=== PATIENT | male | born 1950 | race African-American/Black ===

== ENCOUNTER 2016-07-30 01:23 | Inpatient (IN) | payer OTHER, MEDICARE ==
[2016-07-30] VITALS (9 sets, daily range): BP systolic 93–146; BP diastolic 45–63
[~2016-07-30] VITALS: Ht 193 cm; Wt 75.4 kg
[~2016-07-30 01:23] MED LIST: AMLODIPINE10 MG PO; AZITHROMYCIN250 MG PO; CALCIUM PO; COUMADIN4 MG PO; COUMADIN6 MG PO; Compazine10 MG PO; ELITE MAGNESIUM1 TAB PO; GLEEVEC400 MG PO; KEFLEX 500MG.500 MG PO; MAXZIDE 50 MG-71 TAB OR; OMEPRAZOLE DR20 MG PO; XANAX2 MG PO
--- NOTE | 2016-07-30 01:35 | Emergency Room Report ---
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 EMS REPORTS SATS IN THE 70'S. 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 REPRESENTATIVE Sepsis Risk Assessment: Temp: B/P: 146/63 MAP: 90 Pulse: 114 Resp: 16 Recent fever? N Clinical Suspician of Infection? N Mental Status: 1 - Regular (Normal Baseline) Sepsis Risk:Low Sepsis Risk Have you (or family members/close friends) recently traveled outside the [place]? N If Yes, where/when: Have you had exposure to infectious disease within the past month? N TB? Other? Specify: Source patient, RN notes reviewed, family, RN/MD Exam Limitations no limitations Comment This is a 66-year-old male patient brought in by EMS from local [facility] with shortness of breath. Paramedics advised that upon their arrival to the [facility] the patient's pulse ox was 70% on 3 L nasal cannula (on which he is on, chronically, at the [place]). [facility] staff give patient a dose of oral Lasix prior to departure from the [facility]. ALLERGIES Coded Allergies: lisinopril (Severe, CAUSES FACE TO SWELL 12/14/15) amoxicillin (Mild, I-ITCHING 12/14/15) naproxen (Mild, INCREASES BP 12/14/15) topiramate (From TOPAMAX) (12/24/15) Uncoded Allergies: CHOLESTEROL MEDS (Mild, CRAMPING 06/28/12) Home Medications Reported Medications Amlodipine Besylate (Amlodipine) 10 MG PO DAILY Imatinib Mesylate (Gleevec) 400 MG PO DAILY Warfarin Sodium (Coumadin) 6 MG PO 4X WEEK Warfarin Sodium (Coumadin) 4 MG PO 3X WEEK Alprazolam (Xanax) 2 MG PO PRN PRN SLEEP/ANXIETY History Medical History General CAD? No Angina: Yes [place]: No Hypertension? Yes Hyperlipidemia? Yes CHF? No DVT? Yes PE? No COPD? Yes Asthma? No Anemia? No GERD? No Gastric ulcers? No GI Bleed? No Hernia? No Thyroid Problems? No Hypothyroidism? No CVA? No Seizures? No Diabetes? No Renal Insuffiency? No End Stage Renal Disease? No UTI? No Stones? No BPH? No GB Disease: No Nephritic Syndrome? No Asplenia? No Hepatitis? No Sickle Cell Disease? No Arthritis? No Migraines? No Cataracts? No Glaucoma? No MRSA? No HIV? No TB? No Anxiety? No Depression? 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 No Immunization Hx DT/Tetanus 1-4 YRS Surgical Hx Previous Surgery?Y KENDRICK KNEES Social History Smoking Hx Smoker: Former Smoker Tobacco: No Alcohol Alcohol: No Review of Systems All Other Systems Reviewed and Negative Respiratory shortness of breath Physical Exam Vital Signs Vital Signs Date Time Temp Pulse Resp B/P Pulse O2 O2 Flow FiO2 Ox Delivery Rate 07/30 0146 96 07/30 0127 114 16 146/63 96 15 General Appearance normal appearance, WD/WN, mild distress Neck normal inspection, non-tender, supple, full range of motion Respiratory Status Yes: trachea midline, chest symmetrical, non tender chest. No: respiratory distress. Lung Sounds bilateral: normal breath sounds, lungs clear. Cardiovascular tachycardia, irregularly irregular, + 2 peripheral edema Gastrointestinal normal bowel sounds, normal exam, non tender, soft, no organomegaly Extremities non-tender, normal range of motion, normal inspection Neurologic alert, assembler arranger II-XII nml as tested, normal exam, oriented x 3 Mental status normal mood/affect Skin intact, normal color, warm/dry Medical Decision Making LABS/Meds/Orders Pt receiving controlled substance in ED? No Comment 01:45am -nurse unable to obtain blood, will call cross tie turner 02:10am-call initiated with [facility] in [place], regarding patient's need for TRANSFER *additionbal dose of iv lasix 40mg ivp x1 given. RN stated that the patient had alreayd an output of 1,000ml of urine following the oral Lasix received at the [facility]. 02:25am-Gallo with [facility] called back advising that they do not have any intensive care unit beds. Plan is to wait for the blood work, and admit the patient to this facility, to the environmental science program director physician. 02:55am-case d/w dr. Gates, covering for dr. aBlderas, thighs of patient's presentation, physical examination, findings, ER course, vital signs. Dr. Gates agreeable to accept patient on behalf of Dr. Balderas and place him inpatient/ telemetry. By this time the patient has voided over 1600 mL's of urine after receiving Lasix Results/Orders Laboratory Tests 07/30/16209: Sodium 136, Potassium 4.2, Chloride 101, Carbon Dioxide 29, BUN 20 H, Creatinine 1.3, Estimated Creat Clear 65, Estimated GFR (MDRD) 55, Glucose 89, Calcium 9.1, Total Bilirubin 0.5, AST 56 H, ALT 44, Alkaline Phosphatase 95, Creatine Kinase 100, CK and CKMB Interp 1.0, Troponin I < 0.02, Total Protein 6.2 L, Albumin 1.9 L, Globulin 4.3 H, Albumin/Globulin Ratio 0.4 L, PT 13.1 H, INR 1.22 H, APTT 31.7, WBC 5.8, RBC 3.41 L, Hgb 9.6 L, Hct 31.8 L, MCV 93.4, RDW 16.5, Plt Count 717 H, MPV 6.2 L, Gran % 79.7, Gran # 4.6, Lymphocytes % 11.7, Monocytes % 6.6, Eosinophils % 1.9, Basophils % 0.2, Lymphocytes # 0.7, Monocytes # 0.4, Eosinophils # 0.1, Basophils # 0.0, PUBS MCHC 30.6 L, MCH 28.6 07/30/16134: ABG pH 7.52 H, ABG pCO2 (Temp Corrct 37.3, ABG pO2 (Temp Correct 84.8, ABG HCO3 29.4 H, ABG Total CO2 30.6 H, ABG O2 Sat (Calculated) 96.6, ABG Base Excess 6.5 H, Shiv Test ACCEPTABLE, Blood Gas Comments LEFT RADIAL Current Medication Orders Sig/Tressa Start time Last Medication Dose Route Stop Time Status Admin Furosemide 40 MG ONCE ONE 07/30 214 DC 07/30 IV 07/30 Furosemide 0 .STK-MED ONE 07/30 210 DC .ROUTE Albuterol/Ipratropium 3 ML ONCE ONE 07/30 129 DC 07/30 INH 07/30 Albuterol/Ipratropium 0 .STK-MED ONE 02/17 0130 DC INH Sodium Chloride 10 ML PRN PRN 07/30 0130 AC IV 07/31 0127 Orders Procedure Date/time Status CULTURE, SPUTUM 07/30 0219 Active PARTIAL THROMBOPLASTIN TIME 07/30 0208 Complete PROTHROMBIN TIME 07/30 0208 Complete RT REQUEST DUONEB 07/30 0129 Active ELECTROCARDIOGRAM REQUEST 07/30 0128 Active ARTERIAL BLOOD GAS REQUEST 07/30 0128 Active CHEST-PORTABLE 07/30 012 Active IV SALINE LOCK 07/30 0128 Active OXYGEN PER NURSE 07/30 0128 Active GENERAL INTERNAL MEDICINE DOCTOR 07/30 0128 Active TROPONIN I 07/30 0128 Complete CPK 07/30 0128 Complete COMPLETE METABOLIC PANEL 07/308 Complete CKMB 07/308 Complete CBC WITH AUTO DIFF 07/30 127 Complete 12 LEAD EKG-BESSON (INITIAL) 07/30 UNK Active CM/EKG CM/material handler Rhythm Sinus Tachycardia Rate 112 Ectopy No Comments no acute ischemic changes EKG rate (112), rhythm (sin tachy), no evid. of ischemic chgs, no ectopy XRAY/CT/US XRAY/CT/US XRAY chest XR interpretation by reviewed by me Xray Results c/w congestive heart failure Departure Departure Time of Disposition 021 Disposition DC/XFER from ER to [facility] Clinical Impression Primary Impression: Acute exacerbation of congestive heart failure Qualifiers: Congestive heart failure type: systolic Qualified Code: I50.23 - Acute on chronic systolic (congestive) heart failure Secondary Impressions: Hypoxia Condition STABLE ED Critical Care Critical Care No at 0257
--- NOTE | 2016-07-30 01:35 | Emergency Room Report ---
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 EMS REPORTS SATS IN THE 70'S. PT DENIES ANY SOA OR ANY PAIN Onset of symptoms date/time:/ or onset unknown for:MEDICAL HX UNKNOWN Treatment Prior to Arrival: PT PLACED ON NRB AND SATS INCREASED TO 90'S SENIOR ADMINISTRATIVE ASSOCIATE Provided by:STUDIO ASSISTANT Sepsis Risk Assessment: Temp: B/P: 146/63 MAP: 90 Pulse: 114 Resp: 16 Recent fever? N Clinical Suspician of Infection? N Mental Status: 1 - Regular (Normal Baseline) Sepsis Risk:Low Sepsis Risk Have you (or family members/close friends) recently traveled outside the [place]? N If Yes, where/when: Have you had exposure to infectious disease within the past month? N TB? Other? Specify: Source patient, RN notes reviewed, family, RN/MD Exam Limitations no limitations Comment This is a 66-year-old male patient [facility] in by EMS [facility] with shortness of breath. Paramedics advised that upon their arrival to the [facility] the patient's pulse ox was 70% on 3 L nasal cannula (on which he is on, chronically, at the [place]). group home staff give patient a dose of oral Lasix prior to departure from the [facility]. ALLERGIES Coded Allergies: lisinopril (Severe, CAUSES FACE TO SWELL 12/14/15) amoxicillin (Mild, I-ITCHING 12/14/15) naproxen (Mild, INCREASES BP 12/14/15) topiramate (From TOPAMAX) (12/24/15) Uncoded Allergies: CHOLESTEROL MEDS (Mild, CRAMPING 06/28/12) Home Medications Reported Medications Amlodipine Besylate (Amlodipine) 10 MG PO DAILY Imatinib Mesylate (Gleevec) 400 MG PO DAILY Warfarin Sodium (Coumadin) 6 MG PO 4X WEEK Warfarin Sodium (Coumadin) 4 MG PO 3X WEEK Alprazolam (Xanax) 2 MG PO PRN PRN SLEEP/ANXIETY History Medical History General CAD? No Angina: Yes [place]: No Hypertension? Yes Hyperlipidemia? Yes CHF? No DVT? Yes PE? No COPD? Yes Asthma? No Anemia? No GERD? No Gastric ulcers? No GI Bleed? No Hernia? No Thyroid Problems? No Hypothyroidism? No CVA? No Seizures? No Diabetes? No Renal Insuffiency? No End Stage Renal Disease? No UTI? No Stones? No BPH? No GB Disease: No Nephritic Syndrome? No Asplenia? No Hepatitis? No Sickle Cell Disease? No Arthritis? No Migraines? No Cataracts? No Glaucoma? No MRSA? No HIV? No TB? No Anxiety? No Depression? 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 No Immunization Hx DT/Tetanus 1-4 YRS Surgical Hx Previous Surgery?Y KENDRICK KNEES Social History Smoking Hx Smoker: Former Smoker Tobacco: No Alcohol Alcohol: No Review of Systems All Other Systems Reviewed and Negative Respiratory shortness of breath Physical Exam Vital Signs Vital Signs Date Time Temp Pulse Resp B/P Pulse O2 O2 Flow FiO2 Ox Delivery Rate 07/30 0146 96 07/30 0127 114 16 146/63 96 15 General Appearance normal appearance, WD/WN, mild distress Neck normal inspection, non-tender, supple, full range of motion Respiratory Status Yes: trachea midline, chest symmetrical, non tender chest. No: respiratory distress. Lung Sounds bilateral: normal breath sounds, lungs clear. 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 No Comment 01:45am -nurse unable to obtain blood, will call catalyst unit operator 02:10am-call initiated with [facility] in [place], regarding patient's need for TRANSFER *additionbal dose of iv lasix 40mg ivp x1 given. RN stated that the patient had alreayd an output of 1,000ml of urine following the oral Lasix received at the [facility]. 02:25am-Gallo with [facility] called back advising that they do not have any intensive care unit beds. Plan is to wait for the blood work, and admit the patient to this facility, to the risk control specialist physician. 02:55am-case d/w dr. Gates, covering for dr. Balderas, thighs of patient's presentation, physical examination, findings, ER course, vital signs. Dr. Gates agreeable to accept patient on behalf of Dr. Balderas and place him inpatient/ telemetry. By this time the patient has voided over 1600 mL's of urine after receiving Lasix Results/Orders Laboratory Tests 07/30/16209: Sodium 136, Potassium 4.2, Chloride 101, Carbon Dioxide 29, BUN 20 H, Creatinine 1.3, Estimated Creat Clear 65, Estimated GFR (MDRD) 55, Glucose 89, Calcium 9.1, Total Bilirubin 0.5, AST 56 H, ALT 44, Alkaline Phosphatase 95, Creatine Kinase 100, CK and CKMB Interp 1.0, Troponin I < 0.02, Total Protein 6.2 L, Albumin 1.9 L, Globulin 4.3 H, Albumin/Globulin Ratio 0.4 L, PT 13.1 H, INR 1.22 H, APTT 31.7, WBC 5.8, RBC 3.41 L, Hgb 9.6 L, Hct 31.8 L, MCV 93.4, RDW 16.5, Plt Count 717 H, MPV 6.2 L, Gran % 79.7, Gran # 4.6, Lymphocytes % 11.7, Monocytes % 6.6, Eosinophils % 1.9, Basophils % 0.2, Lymphocytes # 0.7, Monocytes # 0.4, Eosinophils # 0.1, Basophils # 0.0, PUBS MCHC 30.6 L, MCH 28.6 07/30/16134: ABG pH 7.52 H, ABG pCO2 (Temp Corrct 37.3, ABG pO2 (Temp Correct 84.8, ABG HCO3 29.4 H, ABG Total CO2 30.6 H, ABG O2 Sat (Calculated) 96.6, ABG Base Excess 6.5 H, Shiv Test ACCEPTABLE, Blood Gas Comments LEFT RADIAL Current Medication Orders Sig/Tressa Start time Last Medication Dose Route Stop Time Status Admin Furosemide 40 MG ONCE ONE 07/30 214 DC 07/30 IV 07/30 Furosemide 0 .STK-MED ONE 07/30 210 DC .ROUTE Albuterol/Ipratropium 3 ML ONCE ONE 07/30 129 DC 07/30 INH 07/30 Albuterol/Ipratropium 0 .STK-MED ONE 02/17 0130 DC INH Sodium Chloride 10 ML PRN PRN 07/30 0130 AC IV 07/31 0127 Orders Procedure Date/time Status CULTURE, SPUTUM 07/30 0219 Active PARTIAL THROMBOPLASTIN TIME 07/30 0208 Complete PROTHROMBIN TIME 07/30 0208 Complete RT REQUEST DUONEB 07/30 0129 Active ELECTROCARDIOGRAM REQUEST 07/30 0128 Active ARTERIAL BLOOD GAS REQUEST 07/30 0128 Active CHEST-PORTABLE 07/30 012 Active IV SALINE LOCK 07/30 0128 Active OXYGEN PER NURSE 07/30 0128 Active RECORDS MANAGEMENT CLERK 07/30 0128 Active TROPONIN I 07/30 0128 Complete CPK 07/30 0128 Complete COMPLETE METABOLIC PANEL 07/308 Complete CKMB 07/308 Complete CBC WITH AUTO DIFF 07/30 127 Complete 12 LEAD EKG-BESSON (INITIAL) 07/30 UNK Active CM/EKG CM/senior information security consultant Rhythm Sinus Tachycardia Rate 112 Ectopy No Comments no acute ischemic changes EKG rate (112), rhythm (sin tachy), no evid. of ischemic chgs, no ectopy XRAY/CT/US XRAY/CT/US XRAY chest XR interpretation by reviewed by me Xray Results c/w congestive heart failure Departure Departure Time of Disposition 021 Disposition DC/XFER from [facility] to [facility] Clinical Impression Primary Impression: Acute exacerbation of congestive heart failure Qualifiers: Congestive heart failure type: systolic Qualified Code: I50.23 - Acute on chronic systolic (congestive) heart failure Secondary Impressions: Hypoxia Condition STABLE ED Critical Care Critical Care No at 0257
[2016-07-30 01:41] LABS: ARTERIAL ABE 6.5 MMOL/L (-2.4-+2.3); ARTERIAL PO2 84.8 MMHG (80-100); ARTERIAL TCO2 30.6 MMOL/L (23-27); OXYGEN 100%
[2016-07-30 01:42] LABS: ALLEN'S TEST ACCEPTABLE
[2016-07-30 02:18] LABS: LYMPH # 0.7 K/mm3 (0.7-4.5); LYMPH % 11.7 % (10-50)
[2016-07-30 02:38] LABS: HEMOGLOBIN 9.6 g/dL (14.1-18.0)
[2016-07-30 02:42] LABS: BUN 20 mg/dL (7-18); GFR (ESTIMATED) 55 ML/MIN (>60)
[2016-07-30] MEDS ORDERED: VITAMIN D31000 IU PO (04:42)
[2016-07-30] MEDS ORDERED: SPIRIVA18 MCG IH (04:43)
[2016-07-30] MEDS ORDERED: MIRALAX(PO17 GM/1 PA PO (04:46)
[2016-07-30] MEDS ORDERED: PRAVACHOL 20MG.20 MG PO (04:46)
[2016-07-30] MEDS ORDERED: PROTONIX 40MG T40 MG PO (04:47)
[2016-07-30] MEDS ORDERED: DILTIAZEM 24HR360 MG PO (04:48)
[2016-07-30] MEDS ORDERED: ELIQUIS5 MG PO (04:49)
[2016-07-30] MEDS ORDERED: AMIODARONE 200200 MG PO ×2 (04:50→05:26)
[2016-07-30] MEDS ORDERED: PROCHLORPERAZIN10 MG PO (05:14)
[2016-07-30] MEDS ORDERED: VENTOLIN H0.09 MG/AC IH (05:16)
[2016-07-30] MEDS ORDERED: IPRATROPIUM BROM3 M2 IH (05:18)
[2016-07-30] MEDS ORDERED: SPRYCEL100 MG PO (05:19)
[2016-07-30] MEDS ORDERED: HYDROCERIN TP (05:22)
[2016-07-30] MEDS ORDERED: ACETAMINOPHEN500 M3 PO (05:23)
--- NOTE | 2016-07-30 07:15 | PHARMACY CLINIC NOTE ---
Patient Demographics Patient Demographics Admission date: 07/30/16 Date: 07/30/16 Time: 07 Allergies Coded Allergies: lisinopril (Severe, CAUSES FACE TO SWELL 12/14/15) amoxicillin (Mild, I-ITCHING 12/14/15) naproxen (Mild, INCREASES BP 12/14/15) topiramate (From TOPAMAX) (12/24/15) Uncoded Allergies: CHOLESTEROL MEDS (Mild, CRAMPING 06/28/12) HEIGHT- FT: 6 IN: 4.00 K.472 VTE General Information Labs: Laboratory Tests 07/30 0210 Coagulation PT (9.4 - 11.8 SECONDS) 13.1 H INR (0.9 - 1.1) 1.22 H APTT (23.6 - 34.0 SECONDS) 31.7 Hematology Hgb (14.1 - 18.0 g/dL) 9.6 L Hct (42.0 - 52.0 %) 31.8 L Plt Count (142 - 424 K/mm3) 717 H Disclaimer The following section includes nursing documentation that has been pulled in for pharmacy review. Patient's VTE score: 5 Patient's VTE Risk: LOW RISK Clinical trial participant? No VTE prophylaxis [id number] VTE prophylaxis ordered? Yes Type of prophylaxis/treatment: MEG at 0714
--- NOTE | 2016-07-30 07:54 | HISTORY AND PHYSICAL REPORT ---
Demographics: Admit date: 07/30/16 Chief complaint: Dyspnea and fever PRIMARY DIAGNOSIS: CHF Allergies: Coded Allergies: lisinopril (Severe, CAUSES FACE TO SWELL 12/14/15) amoxicillin (Mild, I-ITCHING 12/14/15) naproxen (Mild, INCREASES BP 12/14/15) topiramate (From TOPAMAX) (12/24/15) Uncoded Allergies: CHOLESTEROL MEDS (Mild, CRAMPING 06/28/12) History of present illness: History of present illness: 66-year-old white male, resident of a local intermediate, who has apparently been there to 3 days after being discharged from the [facility]. He was brought to the local emergency department because of cough, congestion, low-grade temperature and dyspnea. In the emergency department was found to have a temperature elevation of 100.3, and have stigmata of CHF. IV Lasix was given and he diureses to over 1.5 L of fluid and felt much better, because of the [facility] purported lack of beds, he was admitted to our facility for further evaluation. Of note no cultures have been done in the emergency arm and for his fever except for a sputum culture which has not been obtained yet. This morning the patient feels better, continues to have a wet cough. Past medical history: Family HX Diabetes No CAD No Hypertension No Hyperlipidemia Yes Cancer Yes TB No Immunization HX DT/Tetanus 1-4 YRS Flu 2015-FSN Pneumonia Received In Past TB Test in last year Yes Result Negative General CAD? No Angina: Yes [place]: No Hypertension? Yes Hyperlipidemia? Yes CHF? No DVT? Yes PE? No COPD? Yes Asthma? No Anemia? No GERD? No Gastric ulcers? No GI Bleed? No Hernia? No Thyroid Problems? No Hypothyroidism? No CVA? No Seizures? No Diabetes? No Renal Insuffiency? No UTI? No Stones? No BPH? No GB Disease: No Nephritic Syndrome? No Asplenia? No Hepatitis? No Sickle Cell Disease? No Arthritis? No Migraines? No Cataracts? No Glaucoma? No MRSA? No HIV? No TB? No Anxiety? No Depression? 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 No Past Surgical HX Previous Surgery?Y KENDRICK KNEES Current home meds: Reported Medications CHOLECALCIFEROL (VITAMIN D3) (Vitamin D) 1,000 IUNITS PO DAILY Tiotropium [place] (Spiriva) 18 MCG IH DAILY Pravastatin Sodium (Pravachol 20MG) 20 MG PO DAILY POLYETHYLENE GLYCOL (Miralax) 17 GM PO DAILY Pantoprazole Sodium (Protonix 40MG TAB) 40 MG PO BID DILTIAZEM HCL (Cardizem Cd 300MG) 360 MG PO DAILY Apixaban (Eliquis) 5 MG PO DAILY Prochlorperazine Maleate 10 MG PO DAILY ALBUTEROL (Ventolin Hfa) 2 PUFF IH IPRATROPIUM/ALBUTEROL SULFATE (Iprat-Albut 0.5-3(2.5) MG/3 Ml) 3 ML IH Q4 Dasatinib (Sprycel) 100 MG PO QHS MINERAL OIL/PETROLATUM,WHITE (Hydrocerin Cream) 1 CRE TP Q12HP Acetaminophen (Pain Reliever) 500 MG PO Q6HP PRN PAIN Amiodarone Hcl (Amiodarone 200MG) 200 MG PO Social Hx: Smoking HX Tobacco No Type Cigarettes Packs/day < 1 PACK Alcohol Alcohol: No Hx of Drug Use Drug Use? No Patien't marital status is single Patient's support system is fair Review of systems: Constitutional fever, malaise, weakness. Respiratory cough. Cardiovascular No no symptoms reported, see HPI Gastrointestinal/Abdominal No no symptoms reported Genitourinary No: no symptoms reported. Musculoskeletal see HPI. Neurological No: see HPI. Exam: Lab data for last 24 hours: Laboratory Tests 07/30/16 0620: Creatine Kinase 175, CK-MB (CK-2) Rel Index 0.6, CK and CKMB Interp 1.1, Troponin I < 0.02 07/30/16 0210: Sodium 136, Potassium 4.2, Chloride 101, Carbon Dioxide 29, BUN 20 H, Creatinine 1.3, Estimated Creat Clear 65, Estimated GFR (MDRD) 55, Glucose 89, Calcium 9.1, Total Bilirubin 0.5, AST 56 H, ALT 44, Alkaline Phosphatase 95, Creatine Kinase 100, CK and CKMB Interp 1.0, Troponin I < 0.02, Total Protein 6.2 L, Albumin 1.9 L, Globulin 4.3 H, Albumin/Globulin Ratio 0.4 L, PT 13.1 H, INR 1.22 H, APTT 31.7, WBC 5.8, RBC 3.41 L, Hgb 9.6 L, Hct 31.8 L, MCV 93.4, RDW 16.5, Plt Count 717 H, MPV 6.2 L, Gran % 79.7, Gran # 4.6, Lymphocytes % 11.7, Monocytes % 6.6, Eosinophils % 1.9, Basophils % 0.2, Lymphocytes # 0.7, Monocytes # 0.4, Eosinophils # 0.1, Basophils # 0.0, PUBS MCHC 30.6 L, MCH 28.6 07/30/16 0135: ABG pH 7.52 H, ABG pCO2 (Temp Corrct 37.3, ABG pO2 (Temp Correct 84.8, ABG HCO3 29.4 H, ABG Total CO2 30.6 H, ABG O2 Sat (Calculated) 96.6, ABG Base Excess 6.5 H, Shiv Test ACCEPTABLE, Blood Gas Comments LEFT RADIAL Microbiology 07/30 UNK BLOOD: Anaerobic Blood Culture - ORD 07/30 UNK BLOOD: Aerobic Blood Culture - ORD 07/30 UNK BLOOD: Anaerobic Blood Culture - ORD 07/30 UNK BLOOD: Aerobic Blood Culture - ORD 07/30 021 SPUTUM: Sputum Culture - RES 07/30 021 SPUTUM: Gram Stain - RES Admission vital signs: 1ST Vital Signs Result Date Time Pulse Ox 96 07/30 0127 B/P 146/63 07/30 0127 O2 Flow Rate 15 07/30 0127 Pulse 114 07/30 0127 Resp 16 07/30 0127 O2 Delivery OXYGEN 07/30 0328 Temp 100.3 07/30 0358 Additional information: Patient is pleasant, alert, oriented x3. No JVD, oropharynx clear, wearing face mask O2. Lungs have rhonchi and crackles throughout, symmetric air entry. Face is symmetric. Heart rate irregularly irregular, abdomen soft and nontender, no edema noted. Wearing denae wrap and MEG hose Plan: Problem List 1. Acute exacerbation of congestive heart failure 2. Hypoxia 3. Acute febrile illness Plan: Clearly patient has a CHF exacerbation. Echocardiogram, continue warfarin for atrial fibrillation. We'll monitor INR closely. Febrile illness is concerning. We will investigate with cultures, upper respiratory PCR panel, treat appropriately. at 0753
[2016-07-30 08:24] LABS: CORONAVIRUS 229E NOT DETECTED (NOT DETECTE); CORONAVIRUS HKU 1 NOT DETECTED (NOT DETECTE); CORONAVIRUS NL63 NOT DETECTED (NOT DETECTE); CORONAVIRUS OC43 NOT DETECTED (NOT DETECTE); RHINOVIRUS/ENTEROVIRUS NOT DETECTED (NOT DETECTE)
--- NOTE | 2016-07-30 09:02 | RADIOLOGY REPORT PS360 ---
CHEST-PORTABLE ORDERING PHYSICIAN : Jay Balderas MD PATIENT AGE: 66 years GENDER: Male INDICATION: dyspnea Dyspnea severe shortness of breath. TECHNIQUE: AP upright chest COMPARISON: Previous PA and lateral chest June 28, 2012 FINDINGS Dramatic change since prior normal chest 2012 Extensive diffuse dense bilateral infiltrates. Air bronchograms centrally. . These dense bilateral infiltrates do have a have a somewhat central butterfly appearance and distribution-& although could be related to CHF/pulmonary edema ,.. it sounds at the patient has a history more suggestive of pneumonia. Clinical correlation required. I would suggest BNP to correlate. There appear to be small bilateral pleural effusions. These fluid collections outline right and left lung. On borderline/mild cardiomegaly. machine hand leads are in place. ---- IMPRESSION: --- 1. Severe dense diffuse bilateral infiltrates infiltrates and air bronchograms most pronounced centrally. Altho history suggests pneumonia , with this radiographic pattern & picture suspect component of CHF & pulmonary edema. Recommend correlation with BNP ,, as well as follow-up CXR in morning. 2. Small Bilateral pleural effusions. Most evident on the right
--- NOTE | 2016-07-30 09:02 | RADIOLOGY REPORT PS360 ---
CHEST-PORTABLE ORDERING PHYSICIAN : Jay Balderas MD PATIENT AGE: 66 years GENDER: Male INDICATION: dyspnea Dyspnea severe shortness of breath. TECHNIQUE: AP upright chest COMPARISON: Previous PA and lateral chest June 28, 2012 FINDINGS Dramatic change since prior normal chest 2012 Extensive diffuse dense bilateral infiltrates. Air bronchograms centrally. . These dense bilateral infiltrates do have a have a somewhat central butterfly appearance and distribution-& although could be related to CHF/pulmonary edema ,.. it sounds at the patient has a history more suggestive of pneumonia. Clinical correlation required. I would suggest BNP to correlate. There appear to be small bilateral pleural effusions. These fluid collections outline right and left lung. On borderline/mild cardiomegaly. quality assurance monitor chassis leads are in place. ---- IMPRESSION: --- 1. Severe dense diffuse bilateral infiltrates infiltrates and air bronchograms most pronounced centrally. Altho history suggests pneumonia , with this radiographic pattern & picture suspect component of CHF & pulmonary edema. Recommend correlation with BNP ,, as well as follow-up CXR in morning. 2. Small Bilateral pleural effusions. Most evident on the right
[2016-07-30] MEDS ORDERED: [UNRECOGNIZED DRUG - OTHER] TP (09:21)
[2016-07-30] MEDS ORDERED: [UNRECOGNIZED DRUG - OTHER] TP (09:23)
[2016-07-30] MEDS ORDERED: IPRATROPIUM BROM3 M1 IH (09:37)
[2016-07-30] MEDS ORDERED: HYDROPHILIC GRX1 OIN TP (09:38)
[2016-07-31] VITALS (7 sets, daily range): BP systolic 104–128; BP diastolic 54–77
[2016-07-31 06:14] LABS: HEMOGLOBIN 8.7 g/dL (14.1-18.0); LYMPH # 0.7 K/mm3 (0.7-4.5); LYMPH % 9.2 % (10-50)
--- NOTE | 2016-07-31 08:42 | ACUTE CARE PROGRESS NOTE (QUA) ---
Progress Notes Subjective Date 07/31/16 Time 0841 Note Patient believes he is feeling a little bit better. He is still requiring face mask oxygen. He denies any chest pain. He does not appear to be in any distress this morning. Breathing is rather noisy. Lungs have diffuse rhonchi both anteriorly and posteriorly. Heart has regular rate and rhythm. Repeat chest x-ray today. Patient is had excellent diuresis. Continue Lasix and IV antibiotics. Objective Findings Last VS-Temp:97.9 B/P:128/60 Pulse:109 Resp:32 SaO2:93 OXYGEN Last weight lbs:173 oz:0 K.472 Method:Bed Scales Laboratory Tests 07/31/16 0545: Sodium 137, Potassium 3.8, Chloride 99, Carbon Dioxide 31, BUN 21 H, Creatinine 1.2, Estimated Creat Clear 65, Estimated GFR (MDRD) 60, Glucose 100, Calcium 8.4 L, Total Bilirubin 0.6, AST 148 H, ALT 94 H, Alkaline Phosphatase 110, Total Protein 4.9 L, Albumin 1.6 L, Globulin 3.3 H, Albumin/Globulin Ratio 0.5 L, WBC 7.1, RBC 2.88 L, Hgb 8.7 L, Hct 26.6 L, MCV 92.3, RDW 16.7, Plt Count 569 H, MPV 6.0 L, Gran % 79.4, Gran # 5.6, Lymphocytes % 9.2 L, Monocytes % 5.9, Eosinophils % 5.4, Basophils % 0.1, Lymphocytes # 0.7, Monocytes # 0.4, Eosinophils # 0.4, Basophils # 0.0, PUBS MCHC 32.6, MCH 30.1 07/30/16 1110: Creatine Kinase 177, CK-MB (CK-2) Rel Index 0.7, CK and CKMB Interp 1.2, Troponin I < 0.02 Assessment/Plan Problem List 1. Acute exacerbation of congestive heart failure Qualifiers: Congestive heart failure type: systolic Qualified Code: I50.23 - Acute on chronic systolic (congestive) heart failure 2. Hypoxia 3. Acute febrile illness Patient condition Stable This inpt stay is expected to cross 2 MNs from start of care Yes at 0842
--- NOTE | 2016-07-31 08:51 | RADIOLOGY REPORT PS360 ---
CHEST-PORTABLE ORDERING PHYSICIAN : Jay Balderas MD PATIENT AGE: 66 years GENDER: Male INDICATION: REPEAT FILM FOR CHF CHF. Short of breath. dyspnea Dyspnea severe shortness of breath. TECHNIQUE: AP upright chest COMPARISON: Previous PA and lateral chest June 28, 2012 FINDINGS Again noted the diffuse dense extensive bilateral infiltrates throughout both lung pablo.. If anything appears be slight progression of findings with slightly more fluffy alveolar component suggested particularly at right chest since yesterday. Continue to favor mainly CHF and pulmonary edema possibly associated pneumonia here on the right. Cannot exclude developing ARDS particularly if if history of sepsis Bilateral pleural effusions fluid outlining the right lung appears slightly increased. Also note fluid outlining the left lung but smaller left pleural effusion. Again borderline/mild cardiomegaly. environmental monitoring technician leads are in place. ---- IMPRESSION: --- 1. Severe dense diffuse bilateral infiltrates persist .. No Improvement.. Slight progression findings right chest since yesterday Slightly more dense & more fluffy alveolar component of infiltrate right midlung & towards right base since yesterday Appearance suggests persistent/progressive pulmonary edema features as the primary etiology,, with possible associated pneumonic infiltrate right chest. Close follow-up will be important 2. Modest Bilateral pleural effusions again noted. Pleural fluid more evident on right than left chest
[2016-08-01] VITALS (7 sets, daily range): BP systolic 110–129; BP diastolic 54–68
[2016-08-01 06:23] LABS: HEMOGLOBIN 8.1 g/dL (14.1-18.0); LYMPH # 0.5 K/mm3 (0.7-4.5); LYMPH % 7.3 % (10-50)
--- NOTE | 2016-08-01 08:01 | ACUTE CARE PROGRESS NOTE (QUA) ---
Progress Notes Subjective Date 08/01/16 Time 0755 Note Patient has no complaints this morning. He states she's feeling a little bit better. He appears comfortable. Face mask is in place. Lungs have significant rhonchi throughout with rales in the RIGHT lung base greater than LEFT lung base. Sputum cultures growing yeast, urine culture is growing Klebsiella Continue current antibiotic coverage. Patient is improved slightly compared to yesterday. H and H has dropped and will be repeated again this afternoon. If H and H continues to cough to decline patient will be given packed red blood cells Objective Findings Last VS-Temp:97.8 B/P:110/54 Pulse:102 Resp:22 SaO2:87 OXYGEN Last weight lbs:173 oz:0 K.472 Method:Bed Scales Laboratory Tests 08/01/16 0555: Sodium 134 L, Potassium 3.5, Chloride 97 L, Carbon Dioxide 31, BUN 23 H, Creatinine 1.4 H, Estimated Creat Clear 56, Estimated GFR (MDRD) 50, Glucose 94 , Calcium 8.8, WBC 6.6, RBC 2.87 L, Hgb 8.1 L, Hct 26.4 L, MCV 92.1, RDW 16.7 , Plt Count 555 H, MPV 6.0 L, Gran % 81.6 H, Gran # 5.4, Lymphocytes % 7.3 L , Monocytes % 5.8, Eosinophils % 5.1, Basophils % 0.2, Lymphocytes # 0.5 L, Monocytes # 0.4, Eosinophils # 0.3, Basophils # 0.0, PUBS MCHC 30.5 L, MCH 28.1 Assessment/Plan Problem List 1. Acute exacerbation of congestive heart failure Qualifiers: Congestive heart failure type: systolic Qualified Code: I50.23 - Acute on chronic systolic (congestive) heart failure 2. Hypoxia 3. Acute febrile illness Patient condition Guarded Plan: continue current care This inpt stay is expected to cross 2 MNs from start of care Yes at 0800
[2016-08-01 16:24] LABS: HEMOGLOBIN 8.7 g/dL (14.1-18.0)
[2016-08-02] VITALS (27 sets, daily range): BP systolic 89–125; BP diastolic 44–63
[2016-08-02 07:10] LABS: LYMPH # 0.4 K/mm3 (0.7-4.5); LYMPH % 4.7 % (10-50)
--- NOTE | 2016-08-02 07:46 | ACUTE CARE PROGRESS NOTE (QUA) ---
Progress Notes Subjective Date 08/02/16 Time 0743 Note Patient had a fairly rough night, required BiPAP for ventilatory support. This morning he is a little bit more alert than yesterday, able to nod just or no to questions. Has had no fever, continues to be slightly tachycardic, has audible rhonchi in his chest, has regular heart rate. Abdomen soft, no significant edema. Labs reviewed as noted. Low hemoglobin noted, slight increased creatinine noted. Objective Findings Last VS-Temp:98.3 B/P:89/58 Pulse:102 Resp:22 SaO2:96 OXYGEN Last weight lbs:164 oz:2 K.446 Method:Bed Scales Assessment/Plan Problem List 1. Acute exacerbation of congestive heart failure Qualifiers: Congestive heart failure type: systolic Qualified Code: I50.23 - Acute on chronic systolic (congestive) heart failure 2. Hypoxia 3. Acute febrile illness 4. CML (chronic myelocytic leukemia) Patient condition Stable Plan: continue current care, blood transfusion today given tachycardia and hemoglobin less than 9 g. High-dose Lasix. This inpt stay is expected to cross 2 MNs from start of care Yes at 0746
--- NOTE | 2016-08-02 07:58 | ACUTE CARE PROGRESS NOTE (QUA) ---
Progress Notes Subjective Date 08/02/16 Time 0757 Assessment/Plan Problem List 1. Acute exacerbation of congestive heart failure Qualifiers: Congestive heart failure type: systolic Qualified Code: I50.23 - Acute on chronic systolic (congestive) heart failure 2. Hypoxia 3. Acute febrile illness 4. CML (chronic myelocytic leukemia) This inpt stay is expected to cross 2 MNs from start of care Yes Antibiotic Stewardship (2) Current Culture Results Microbiology 07/30 08 URINE CATH: Urine Culture - COMP KLEBSIELLA PNEUMONIAE 07/30 08 BLOOD: Anaerobic Blood Culture - RES 07/30 08 BLOOD: Aerobic Blood Culture - RES 07/30 209 SPUTUM: Sputum Culture - COMP YEAST 07/30 209 SPUTUM: Gram Stain - COMP Infxn that will respond? Yes Right drug,dose,and route? Yes More targeted antbx? No How long atbx needed? 10 at 0752
[2016-08-02 09:00] LABS: NEUTROPHILS 82 % (42-76)
[2016-08-02 09:57] LABS: ABO BLOOD TYPE O; ANTIHUMAN GLOB CROSSMATCH COMPAT; RH BLOOD TYPE POSITIVE
--- NOTE | 2016-08-02 20:22 | RADIOLOGY REPORT PS360 ---
PROCEDURE: 2-D M-mode and color Doppler study INDICATIONS FOR THE TEST: Chest pain COPDX Heart Murmur Tobacco Smoking Palpitations Fatigue Syncope Edema HypertensionXDiabetes Mellitus Rheumatic Fever SOBXDOE Obesity Hyperlipidemia Family History HD Additional History AF PATIENT INFORMATION HEIGHT: 77 WEIGHT:185 GENDER: Male B/P:146/63 2-D/M-MODE INTERPRETATION: 2-D MEASUREMENTS OBSERVED VALUES IN CMS Right Ventricular Dimension (RVDd) 1.1 Interventricular Septum (Thickness)(IVsd) .9 Left Ventricular Internal Dimensions(LVIDd) 5.8 Left Ventricular Posterior Wall (Thickness)(LVPWd) .9 Aortic Root 3.6 Aortic Cusp Separation 2.2 Left Atrial Dimensions (LAD) 3.1 2D 1. Technically difficult study because of the patient's factor and poor acoustic Windows. 2. The left atrium is moderately enlarged, left ventricle is normal size, there is hyperdynamic left ventricular systolic function visually estimated ejection fraction over 65% with no obvious regional wall motion abnormality, there is abnormal septal motion, endocardial surface of poorly visualized. 3. The right-sided chambers are not well visualized, however right atrium and right ventricle appears to be moderately enlarged, the contractility of the right ventricle appears to be reduced. 4. The aortic valve is minimally thickened and fibrosed consistent with mild aortic sclerosis. 5. The mitral valve has mitral calcification there is no mitral stenosis. 6. The tricuspid and pulmonic valve are not well visualized. 7. No significant pericardial effusion noted. DOPPLER INTERROGATION: Doppler interrogation of the aortic mitral and tricuspid presence of mild mitral and tricuspid regurgitation, tricuspid regurgitant jet velocity insufficient for calculation of the right ventricular systolic pressure. CONCLUSION: 1. Biatrial enlargement, normal left ventricular size hyperdynamic left ventricular systolic function visually estimated ejection fraction over 65%, there is abnormal septal motion. 2. Moderately enlarged right ventricle with reduced contractility. 3. Mild mitral and tricuspid regurgitation. Tricuspid regurgitant jet velocity insufficient for calculation of the right ventricular systolic pressure. 4. No significant pericardial effusion noted.
[2016-08-02 21:54] LABS: HEMOGLOBIN 9.8 g/dL (14.1-18.0)
[2016-08-03] VITALS (21 sets, daily range): BP systolic 93–146; BP diastolic 46–78
--- NOTE | 2016-08-03 08:29 | ACUTE CARE PROGRESS NOTE (QUA) ---
Progress Notes Subjective Date 08/03/16 Time 0828 Note Patient remains on BiPAP but has had lower oxygen requirements over the past 12 hours. Also has become a little bit more responsive to commands and has been able to have his protective mittens removed and will leave the BiPAP machine on. Lungs have rhonchi, throughout his anterior chest passages, this is slightly improved over yesterday's exam, heart rate regular, blood pressure remains stable. Abdomen soft. Objective Findings Last VS-Temp:98.1 B/P:104/56 Pulse:100 Resp:28 SaO2:90 OXYGEN Last weight lbs:166 oz:4 K.41 Method:Bed Scales Assessment/Plan Problem List 1. Acute exacerbation of congestive heart failure Qualifiers: Congestive heart failure type: systolic Qualified Code: I50.23 - Acute on chronic systolic (congestive) heart failure 2. Hypoxia 3. Acute febrile illness 4. CML (chronic myelocytic leukemia) 5. Nosocomial pneumonia 6. Respiratory failure Patient condition Improving Plan: continue current care, broad-spectrum antibiotics, await culture results, Solu-Medrol seems to have helped respiratory mechanics. Continue BiPAP support. This inpt stay is expected to cross 2 MNs from start of care Yes Antibiotic Stewardship (2) Infxn that will respond? Yes Right drug,dose,and route? Yes More targeted antbx? No at 0829
--- NOTE | 2016-08-03 17:40 | RADIOLOGY REPORT PS360 ---
CHEST-PORTABLE HISTORY: Shortness of air, labored breathing chf/pneumonia ORDERING PHYSICIAN: Jay Balderas MD PATIENT AGE: 66 years COMPARISON: 07/31/2016 FINDINGS: There is diffuse bilateral alveolar opacification as previously described with bilateral pleural effusions.. The diffuse alveolar disease may be slightly improved in the upper lobes. There is cardiomegaly. IMPRESSION: Continued diffuse bilateral airspace disease with bilateral effusions which may represent diffuse pneumonia and/or pulmonary edema. The alveolar disease appears very slightly improved in both upper lobes
[2016-08-04] VITALS (10 sets, daily range): BP systolic 90–126; BP diastolic 59–85
--- NOTE | 2016-08-04 07:41 | ACUTE CARE PROGRESS NOTE (QUA) ---
Progress Notes Subjective Date 08/04/16 Time 0739 Note Overall patient did somewhat better last night on higher intensity BiPAP. Did respond somewhat to high-dose Lasix with 750 mL cavalry scout of urine. He is a little more alert today. Lungs have better air entry with somewhat more loose rhonchi, heart rate regular. Abdomen soft, skin perfusion is good. Objective Findings Last VS-Temp:98.3 B/P:122/67 Pulse:93 Resp:18 SaO2:93 OXYGEN Last weight lbs:166 oz:4 K.41 Method:Bed Scales Assessment/Plan Problem List 1. Acute exacerbation of congestive heart failure Qualifiers: Congestive heart failure type: systolic Qualified Code: I50.23 - Acute on chronic systolic (congestive) heart failure 2. Hypoxia 3. Acute febrile illness 4. CML (chronic myelocytic leukemia) 5. Nosocomial pneumonia 6. Respiratory failure Patient condition Improving, very slight improvement. Overall prognosis remains poor. Check renal function today. Consider re\re dosing with high-dose Lasix. This inpt stay is expected to cross 2 MNs from start of care Yes Antibiotic Stewardship (2) Infxn that will respond? Yes Right drug,dose,and route? Yes More targeted antbx? No at 0740
--- NOTE | 2016-08-04 07:41 | ACUTE CARE PROGRESS NOTE (QUA) ---
Progress Notes Subjective Date 08/04/16 Time 0739 Note Overall patient did somewhat better last night on higher intensity BiPAP. Did respond somewhat to high-dose Lasix with 750 mL account review specialist of urine. He is a little more alert today. Lungs have better air entry with somewhat more loose rhonchi, heart rate regular. Abdomen soft, skin perfusion is good. Objective Findings Last VS-Temp:98.3 B/P:122/67 Pulse:93 Resp:18 SaO2:93 OXYGEN Last weight lbs:166 oz:4 K.41 Method:Bed Scales Assessment/Plan Problem List 1. Acute exacerbation of congestive heart failure Qualifiers: Congestive heart failure type: systolic Qualified Code: I50.23 - Acute on chronic systolic (congestive) heart failure 2. Hypoxia 3. Acute febrile illness 4. CML (chronic myelocytic leukemia) 5. Nosocomial pneumonia 6. Respiratory failure Patient condition Improving, very slight improvement. Overall prognosis remains poor. Check renal function today. Consider re\re dosing with high-dose Lasix. This inpt stay is expected to cross 2 MNs from start of care Yes Antibiotic Stewardship (2) Infxn that will respond? Yes Right drug,dose,and route? Yes More targeted antbx? No at 0740
--- NOTE | 2016-08-04 08:56 | CONSULT NOTE ---
See Addendum Consult Note Note: Reason for consultation: Acute respiratory failure Requested by: Dr. Snow Mr. Bradley is acutely ill, on BiPAP and, although he is awake and alert, he cannot give me a clear history because of breathlessness. 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 He was recently discharged from the [facility] to a detention and was on oxygen at 2 L/m. On the of this month, profound hypoxemia became apparent despite supplemental oxygen therapy and he was admitted to this hospital. Acute pulmonary edema was the working diagnosis and he apparently responded initially to diuresis. However, respiratory failure has progressed and he is now on BiPAP with 90 percent FiO2. He did not recall fever or chills and told me he was not in any pain. However, he did feel quite short of breath. When I asked him about his wishes for further management, he nodded that he would wish to be intubated if necessary. ALLERGIES: Lisinopril has caused facial swelling; amoxicillin causes itching. Naprosyn has increased blood pressure and topiramate is listed as an ALLERGY. Current medications include methylprednisolone, lorazepam, amiodarone, pravastatin, diltiazem, pantoprazole, furosemide and levofloxacin. His home medications include amlodipine, imatinib and warfarin. On physical examination, Mr. Santizo is a thin elderly man lying in bed at 30 degrees elevation. He appears breathless. Vital signs: Blood pressure 122/67, temperature 98.3 (100.3 on admission), pulse 93 and respiratory rate 24. He's on BiPAP which at present is 18/8. FiO2 is 90 percent. Oxygen saturation is 93 percent. HEENT: Sclerae clear; conjunctivae pale; oropharynx shows no mucosal lesions. Neck: No JVD at 30 degrees elevation. No adenopathy. Chest: Increased AP diameter; hyperresonance by percussion bilaterally; diffuse inspiratory and expiratory low pitched wheezes and inspiratory crackles. Heart: Irregularly irregular rhythm. I can't hear if there is a murmur because of the wheezing. Abdomen: Scaphoid; all sounds diminished; soft and nontender and I cannot feel a liver or spleen. Skin: No rash. He has a mole over the dorsum of the LEFT foot and there is discoloration over the anterior lower legs. Neurological: He is awake and alert and was able to answer my questions by nodding. When he tried to speak, I could not hear his voice and did not remove BiPAP. He is moving all extremities. The chest x-ray on admission shows bilateral alveolar infiltrates involving all lobes. The chest x-ray from yesterday seems to show minimal clearing and there are still bilateral alveolar infiltrates present. He's had one blood gas on admission which showed metabolic alkalosis. The pCO2 was 37 and pO2 84 on 100 percent oxygen by face mask. His admission complete blood count showed a hemoglobin of 9.6, white blood cell count of 5.8 and a platelet count of 717,000. A complete blood count on the demonstrated a hemoglobin of 8, a white blood cell count of 9000 and a platelet count of 558,000. Granulocytes dominated on both diffs. Blood cultures are negative and a sputum culture only grew yeast. Assessment and plan: Mr. Bradley is critically ill with acute respiratory failure and, although congestive heart failure may have been present at the time of admission, I do not think that is the major cause. I believe he's in ARDS now and have arranged for transfer to the [facility]. We will intubate him here prior to transfer. Time spent reviewing the medical record including x-rays, examining Mr. Bradley and coordinating care: 60 minutes. at 0856
[2016-08-04 10:14] LABS: ARTERIAL ABE 5.8 MMOL/L (-2.4-+2.3); ARTERIAL PO2 86.6 MMHG (80-100); ARTERIAL TCO2 32.1 MMOL/L (23-27)
[2016-08-04 10:16] LABS: ALLEN'S TEST ACCEPTABLE; OXYGEN 100; VENT RATE 20
--- NOTE | 2016-08-04 10:31 | RADIOLOGY REPORT PS360 ---
CHEST-PORTABLE HISTORY: Respiratory failure ETT PLACEMENT ORDERING PHYSICIAN: Jay Balderas MD PATIENT AGE: 66 years COMPARISON: 08/03/2016 FINDINGS: There is been interval insertion of endotracheal tube which is approximately 7 cm above the eliza. There is diffuse bilateral airspace disease with bilateral effusions not significant change consistent with diffuse bilateral pneumonia. IMPRESSION: Endotracheal tube tip in good position. No change diffuse bilateral airspace disease/pneumonia with effusions
== END 2016-08-04 11:30 | disposition short-term general hospital (02) | DRG 291 ==
LOC: ER 01:23 → 2ND 02:58 → ER 02:58 → 2ND 03:44 → ICU 03:44 → 2ND 03:44 → ICU 08-03 20:37
PROVIDERS: Emergency Medicine; Family Medicine; Internal Medicine Adolescent Medicine
PROC: 5A09457 Assistance with Respiratory Ventilation, 24-96 Consecutive Hours, Continuous Positive Airway Pressure (ICD-10-PCS; principal; 2016-07-30)
PROC: 5A1935Z Respiratory Ventilation, Less than 24 Consecutive Hours (ICD-10-PCS; 2016-08-04)
PROC: 0BH17EZ Insertion of Endotracheal Airway into Trachea, Via Natural or Artificial Opening (ICD-10-PCS; 2016-08-04)
DX: I50.23 Acute on chronic systolic (congestive) heart failure (principal); J18.9 Pneumonia, unspecified organism; J96.01 Acute respiratory failure with hypoxia; J44.9 Chronic obstructive pulmonary disease, unspecified; C92.10 Chronic myeloid leukemia, BCR/ABL-positive, not having achieved remission; I48.91 Unspecified atrial fibrillation; Y95 Nosocomial condition; I10 Essential (primary) hypertension; Z79.01 Long term (current) use of anticoagulants
CPT/HCPCS: J2704; P9016